=== PATIENT | male | born 1950 | race Caucasian/White ===

== ENCOUNTER 2017-07-22 05:46 | Day surgery (SDC) | payer MEDICARE, OTHER ==
[2017-07-21 13:45] LABS: HEMATOCRIT 43.7 % (42.0-54.0); HEMOGLOBIN 14.3 g/dL (13.5-17.5); MCH 31.3 pg (26.0-34.0); MCHC 32.7 g/dL (31.0-37.0); MCV 95.6 fL (80.0-100.0); MEAN PLATELET VOLUME 10.5 fL (7.4-10.4); RBC 4.57 10x6/uL (4.20-6.10); RDW 12.7 % (11.5-14.5); WBC 6.3 10x3/uL (4.8-10.8)
[2017-07-21 14:01] LABS: ANION GAP 10.9 mmol/L (8-16); CALCIUM 9.4 mg/dL (8.5-10.1); CARBON DIOXIDE 31.8 mmol/L (21.0-32.0); CREATININE - SERUM 1.2 mg/dL (0.6-1.3); POTASSIUM - SERUM 4.7 mmol/L (3.5-5.1)
[~2017-07-22 05:46] MED LIST: ANUSOL-HC25 MG RC; ARMOUR THYROID30 MG; ASPIRIN325 MG PO; ATIVAN0.5 MG; ATIVAN0.5 MG PO; BACTRIM 400-801 TAB PO; BACTRIM DS TABL1 TAB PO; BAYER ASPIRIN325 MG PO; BENADRYL25 MG PO; CIALIS5 MG PO; CINNAMON500 MG; CINNAMON500 MG PO; CLARINEX-D 21 BOTTLE; CO Q-10200 MG PO; CO Q-1030 MG; CRANBERRY; DHEA25 M1; ESTER-C 500 MG1 TAB PO; FETZIMA40 MG PO; FLAXSEED OIL1000 MG; FLAXSEED OIL1000 MG PO; FOLIC ACID; GARLIC1 CAP; GLUCOPHAGE1000 MG PO; GLUCOPHAGE500 MG PO; HUMULIN R100 U/ML SQ; HYDROCODONE-APA1 TAB PO; K-DUR20 MEQ PO; KLOR-CON M2020 MEQ PO; LACTINEX C1 TAB.CHEW PO; LASIX20 MG PO; LASIX80 MG PO; LOPRESSOR25 MG PO; LOVAZA1 G; LUNESTA3 MG PO; MELATONIN 3 MG1 TAB; MELATONIN 3 MG1 TAB PO; MUCINEX600 MG PO; NUCALA INJ; OMEGA-3100 MG PO; PROSTATE SUPPORT OR; QVAR8.7 G1 INH; RESTORIL7.5 MG PO; ROXICODONE5 MG PO; SINGULAIR10 MG PO; STERAPRED DS 1010 MG PO; STOOL SOFTENER240 MG; STOOL SOFTENER240 MG PO; SYMBICORT 16010.2 GM; SYMBICORT 16010.2 GM INH; SYMBICORT 80-10.2 GM INH; TESTOSTERON200 MG/ML IM; TYLENOL 325 MG325 MG PO; VANCOMYCIN1 GM/2501 IV; VENTOLIN HFA18 GM INH; VIT B; VITAMIN C250 MG; VITAMIN D2000 UNIT; VITAMIN D2000 UNIT PO; ZOCOR20 MG PO; ZYLOPRIM100 MG PO; [UNRECOGNIZED DRUG - OTHER] OR
[2017-07-22 14:22] VITALS: BP 134/79; BMI 37.8
--- NOTE | 2017-07-22 17:11 | NUR ---
0179- REPORT RECEIVED FROM MARLA Perea RN. PT RESTING IN BED WITH HOB ELEVATED. AT BEDSIDE. WILL MONITOR.
--- NOTE | 2017-07-22 17:13 | NUR ---
PT UP TO BR TO VOID X1 ASSIST. SMALL LIQUID BM, WELL. WILL CONTINUE TO MONITOR. VSS.
--- NOTE | 2017-07-22 17:55 | NUR ---
1745- IV DISCHARGED, PT TOLERATED. CATHETER INTACT. 1750- DISCHARGE INSTRUCTIONS COMPLETED. PAPERWORK SIGNED, PT VERBALIZES UNDERSTANDING. 175- PT DISCHARGED VIA WHEELCHAIR WITH .
--- NOTE | 2017-07-23 10:09 | OP ---
PATIENT NAME: EVAN WILLS MEDICAL RECORD: [id number] :50 LOCATION:[facility] ADMISSION DATE: SURGEON: ZANE BOWLES MD DATE OF OPERATION: 07/22/2017 SURGEON: Zane Bowles MD ANESTHESIA: General anesthesia by Dr. Yin. PREOPERATIVE DIAGNOSIS: Elevated PSA, 3.9. PROCEDURE: Transrectal ultrasound and prostate biopsy. FINDINGS: A 46 gram prostate, no hypoechoic areas. SPECIMENS: Prostate biopsy cores. ESTIMATED BLOOD LOSS: Minimal. CLINICAL HISTORY: This is a 66-year-old male, who was referred by Dr. Jacob Ochoa for an elevated PSA. His previous PSA levels had been in the 1.5 range and all of a sudden it has increased to 3.9. His family history is positive for colon cancer in his father with liver metastasis. His mother had an UT. There is no family history of prostate cancer, but this is his primary concern. He also has some obstructive voiding symptoms. On rectal examination, no nodules were palpated. He did have prophylactic antibiotics at home of Bactrim. He did have an enema last night to empty the rectum. HE IS ALLERGIC TO CIPRO, CRESTOR, AND ADHESIVE BANDAGES. He was given Ancef 1 gram IV fashion photographer to the OR today. DESCRIPTION OF PROCEDURE: The patient was given induction of general anesthesia. He was then placed into dorsal lithotomy position and prepped and draped. The transrectal ultrasound probe was placed into the rectum and we obtained measurements of the prostate size. These worked up to 46 grams. Sextant biopsies were obtained with at least 2 good cores from the apex, mid and base levels on both sides. These cores were sent separately to pathology in formalin. There were a total of 6 containers left and right apex, mid, and base. At the end of procedure, the ultrasound probe was removed and the patient was awakened and brought to the recovery room. I will see him in followup in 1 week's time review the pathology results with him. TRANSINT:[id number] Voice Confirmation ID: [id number] DOCUMENT ID: [id number] ZANE BOWLES MD at 1009 CC: [id number] DICTATION DATE: 07/22/17 161 LINE CAMERA OPERATOR: 07/22/172036 [facility] 07/22/17 [facility] [address] [place] [address]
== END 2017-07-22 17:55 | disposition home or self-care (01) ==
LOC: D.OPS 05:46 → D.PAN 13:30 → D.OPS 17:55
PROVIDERS: Anesthesiology
DX: R97.20 Elevated prostate specific antigen [PSA] (principal); J45.909 Unspecified asthma, uncomplicated; I25.10 Atherosclerotic heart disease of native coronary artery without angina pectoris; G47.30 Sleep apnea, unspecified; Z95.1 Presence of aortocoronary bypass graft; Z95.5 Presence of coronary angioplasty implant and graft; E11.9 Type 2 diabetes mellitus without complications; Z01.812 Encounter for preprocedural laboratory examination

== ENCOUNTER → 2018-01-03 17:30 | Outpatient (CLI) | payer MEDICARE, OTHER ==
[~2018-01-03 17:30] MED LIST changes: +FLOMAX0.4 MG PO; +FLUTICASONE PRO16 GM NASAL; +LEVOXYL50 MCG PO; +PROSCAR5 MG; +ZOLOFT50 MG PO
== END | disposition home or self-care (01) ==
LOC: D.LABREF 17:30
DX: N39.0 Urinary tract infection, site not specified (principal)

== ENCOUNTER 2018-02-21 07:25 | Day surgery (SDC) | payer MEDICARE, OTHER ==
[~2018-02-21] VITALS: Ht 190.5 cm; Wt 84.1 kg
--- NOTE | ~2018-02-21 | OP ---
PATIENT NAME: EVAN WILLS MEDICAL RECORD: [id number] :50 LOCATION:D[facility] ADMISSION DATE: SURGEON: JORGE LARA DO DATE OF OPERATION: 02/21/2018 PROCEDURE: Colonoscopy with polypectomy. INDICATIONS FOR PROCEDURE: History of colon polyps, family history of colon cancer in father, change in bowel habits. The patient's last colonoscopy was performed on 11/28/2015. SCOPE: Olympus video pediatric colonoscope. MEDICATIONS: Propofol 800 mg IV per anesthesia. WITHDRAWAL TIME: 29 minutes. ESTIMATED BLOOD LOSS: Minimal. COMPLICATIONS: None. FINDINGS: Informed consent was given. The patient was made comfortable with the above medication. After reaching an adequate level of sedation by slow IV push, the patient was placed on his left side. A digital rectal examination was performed and was normal. The endoscope was then advanced under direct visualization through the rectum to the cecum, confirmed by the presence of the appendiceal orifice and ileocecal valve. The endoscope was slowly withdrawn. Mucosa was carefully examined. Prep quality was fair. There were 5 polyps removed on today's examination. They were all benign appearing and sessile and ranged in size from 2-5 mm in diameter. They were removed using hot forceps in 1 piece and completely retrieved. Two of these polyps were located in the cecum and 3 were located in the ascending colon. All were removed in 1 piece and completely retrieved. There was evidence of mild diverticulosis involving the transverse colon, descending colon, and sigmoid colon. Retroflexion was performed in the rectum with visualization of grade I internal hemorrhoids without bleeding. Random cold forceps biopsies and stool collection was also performed for further studies regarding change in bowel habits. The endoscope was withdrawn from the patient. The patient tolerated the procedure well and there were no complications. IMPRESSION: 1. Five polyps as described above removed using hot forceps. 2. Mild diverticulosis of the left side of the colon. 3. Grade I internal hemorrhoids without bleeding. PLAN AND RECOMMENDATIONS: 1. Discharge home when recovery parameters are met. 2. Follow up biopsy specimen results. 3. High fiber diet. 4. Continue current medications. 5. Recall colonoscopy in 2-3 years for continued surveillance of strong personal history of polyps and family history of colon cancer. TRANSINT:[id number] Voice Confirmation ID: [id number] DOCUMENT ID: [id number] OPERATIVE REPORT [id number] WILLS,EVAN JORGE OSORIO DO at 1558 CC: [id number] DICTATION DATE: 02/21/18 1006 [place]: 02/21/18 1109 [facility] 02/21/18 [id number] [place] [address]
[~2018-02-21 07:25] MED LIST changes: -FLOMAX0.4 MG PO; -FLUTICASONE PRO16 GM NASAL; -LEVOXYL50 MCG PO; -PROSCAR5 MG; -ZOLOFT50 MG PO
[2018-02-21] MEDS ORDERED: PROSCAR5 MG (07:53)
[2018-02-21] MEDS ORDERED: FLOMAX0.4 MG PO (07:53)
[2018-02-21] MEDS ORDERED: LEVOXYL50 MCG PO (07:54)
[2018-02-21] MEDS ORDERED: SYMBICORT 80-10.2 GM INH (07:54)
[2018-02-21] MEDS ORDERED: SINGULAIR10 MG PO (07:54)
[2018-02-21] MEDS ORDERED: FLUTICASONE PRO16 GM NASAL (07:55)
[2018-02-21] MEDS ORDERED: ZOLOFT50 MG PO (07:55)
[2018-02-21 08:04] VITALS: BP 137/72; Ht 190.5 cm; Wt 84.1 kg
[2018-02-21 08:08] LABS: BASOPHILS 0.2 % (0-2); EOSINOPHILS 0.7 % (0-7); HEMATOCRIT 41.5 % (42.0-54.0); HEMOGLOBIN 13.5 g/dL (13.5-17.5); IMMATURE GRANULOCYTES 0.3 % (0-5); LYMPHOCYTES 32.2 % (15-50); MCH 31.2 pg (26.0-34.0); MCHC 32.5 g/dL (31.0-37.0); MCV 95.8 fL (80.0-100.0); MONOCYTES 10.6 % (2-11); PLATELET COUNT 155 10x3/uL (130-400); RBC 4.33 10x6/uL (4.20-6.10); RDW 13.2 % (11.5-14.5); WBC 6.1 10x3/uL (4.8-10.8)
[2018-02-21 08:29] LABS: CALC OSMOLALITY 281 mosm/kg (275-300); CALCIUM 8.7 mg/dL (8.5-10.1); CARBON DIOXIDE 27.5 mmol/L (21.0-32.0); CHLORIDE - SERUM 106 mmol/L (98-107); CREATININE - SERUM 0.9 mg/dL (0.6-1.3); GLUCOSE 104 mg/dL (74-106); POTASSIUM - SERUM 4.1 mmol/L (3.5-5.1); SODIUM 142 mmol/L (136-145); UREA NITROGEN 11 mg/dL (7-18); eGFR NON AFRICAN AMERICAN 89 mL/min (90-120)
== END 2018-02-21 11:16 | disposition home or self-care (01) ==
LOC: D.OPS 07:25
PROVIDERS: Anesthesiology
DX: D12.2 Benign neoplasm of ascending colon (principal); D12.0 Benign neoplasm of cecum; K63.5 Polyp of colon; K57.30 Diverticulosis of large intestine without perforation or abscess without bleeding; K64.0 First degree hemorrhoids; Z86.010 Personal history of colon polyps; Z80.0 Family history of malignant neoplasm of digestive organs

== ENCOUNTER 2018-08-02 08:55 | Day surgery (SDC) | payer MEDICARE, OTHER ==
[~2018-08-02] VITALS: Ht 190.5 cm; Wt 136.1 kg
--- NOTE | ~2018-08-02 | OP ---
PATIENT NAME: EVAN WILLS MEDICAL RECORD: [id number] :50 LOCATION:[facility] ADMISSION DATE: SURGEON: CARLOS BOWLES MD DATE OF OPERATION: 08/02/2018 SURGEON: Carlos Bowles MD ANESTHESIA: General anesthesia by Ilene Davis CRNA DIAGNOSES: Bladder tumor and obstructive BPH. PROCEDURES: Cystoscopy, right retrograde pyelogram, right ureteral stent insertion of 6-Mexican x 26 cm without string attached, transurethral resection of bladder tumor of less than 5 cm with greater than 2 cm in extent, and UroLift with 4 devices used. FINDINGS: Bilateral lateral lobe hyperplasia of the prostate. Papillary right posterior wall bladder tumor very close to the right ureteral orifice. Tumors are about 5 cm or less in extent but greater than 2 cm in extent. SPECIMENS: Bladder tumors. BLOOD LOSS: None. CLINICAL HISTORY: This is a 67-year-old male who has obstructive BPH symptoms. Last year, he had transrectal ultrasound and prostate biopsy which showed that his prostate was 46 grams in size. His pathology was benign. He has been on finasteride and tamsulosin for over 6 months and he still has quite significant voiding symptoms. This includes urgency and nocturia times 1. He has to carry a urinal in the car because he has to void very frequently and urgently. He does not want to carry on with the medications and he wishes to have the UroLift procedure done. HE IS ALLERGIC TO ADHESIVE, CIPRO, AND CRESTOR. He was given Ancef 2 grams IV on-call to the OR. DESCRIPTION OF PROCEDURE: Initially, the patient was given TIVA and he was placed in dorsal lithotomy position and prepped and draped. We used a 20-Mexican cystoscope with 30-degree lens for visualization. Penile urethra showed no tumors or obstruction. Prostatic urethra showed bilateral lateral lobe hyperplasia with obstruction. There was no significant median lobe. On entering into the bladder, the left ureteral orifice was normal. The bladder was mildly trabeculated. Around the right ureteral orifice, we saw extensive papillary bladder tumors. Because of this, we had to obtain a retrograde pyelogram to check the upper tracts and also I wanted to insert a right ureteral stent to protect the ureteral orifice. Radiology was called. We used an open-ended 5-Mexican ureteral catheter and diluted contrast was injected into the right ureteral orifice for retrograde pyelogram. No hydronephrosis or filling defects were seen. No upper tract filling defects were seen. Through the lumen of the ureteral catheter, a Sensor wire was placed up to the renal pelvis. Once the wire was in correct position, the ureteral catheter was entirely removed, leaving the wire in place. Over the wire, we inserted a 6-Mexican x 26-cm right ureteral stent with the string on the distal end removed. Once the stent was in correct position, the wire was entirely removed. The distal end of the stent was pushed into the bladder using a pusher. Fluoroscopy revealed that the proximal and distal ends of the stent were in the correct position. I then used the monopolar resection loop and resected all of the papillary bladder tumor, OPERATIVE REPORT [id number] EVAN WILLS but working around the stent. No bladder perforation occurred. The ureteral orifice itself was left intact, but the transmural ureter has been resected above. It was not perforated, but the tissue overlying it has been resected. All the resection specimens were collected and sent to pathology for diagnosis. We then turned our attention back to the UroLift procedure. The resectoscope was removed. We went back to the UroLift scope. Going into the bladder neck, we then moved distally by about 2 cm. An implant was placed through the left lateral lobe for the bladder neck unit. One was placed on the right lateral lobe in the corresponding location. We then moved just proximal to the verumontanum and another 2 were placed here just proximal to the verumontanum. This was placed one on each side. This gave a total of 4 implants placed. We then had a nice wide open prostatic urinary channel. Once this was done, the scope was removed entirely. A 20-Mexican 3-way Woodard catheter was then inserted into the bladder. The balloon was inflated with 30 cc of sterile water. The inflow port was capped. The catheter was put to bag drainage. The patient will go home with a Woodard catheter to bag drainage. I will see him in follow up in one week's time to remove the Woodard catheter. We will also make arrangements for removal of the right ureteral stent at that time. The patient's preoperative IPSS score was 31 and his quality of life score was 5. TRANSINT:[id number] Voice Confirmation ID: [id number] DOCUMENT ID: [id number] CARLOS BOWLES MD at 1004 CC: [id number] DICTATION DATE: 08/02/18 1558 GRAINING MACHINE OPERATOR: 08/02/18 1846 [facility] 08/02/18 [facility] [address] [id number]
[~2018-08-02 08:55] MED LIST changes: +FLOMAX0.4 MG PO; +FLUTICASONE PRO16 GM NASAL; +LEVOXYL50 MCG PO; +PROSCAR5 MG; +ZOLOFT50 MG PO
[2018-08-02 09:33] LABS: HEMATOCRIT 40.9 % (42.0-54.0); HEMOGLOBIN 13.6 g/dL (13.5-17.5); MCH 31.6 pg (26.0-34.0); MCHC 33.3 g/dL (31.0-37.0); MCV 95.1 fL (80.0-100.0); MEAN PLATELET VOLUME 10.6 fL (7.4-10.4); RBC 4.3 10x6/uL (4.20-6.10); RDW 12.5 % (11.5-14.5); WBC 5.9 10x3/uL (4.8-10.8)
[2018-08-02 09:42] LABS: ANION GAP 10.9 mmol/L (8-16); CALCIUM 9.2 mg/dL (8.5-10.1); CARBON DIOXIDE 31.1 mmol/L (21.0-32.0); CREATININE - SERUM 1.1 mg/dL (0.6-1.3)
[2018-08-02 11:36] VITALS: BP 116/70; Ht 190.5 cm; Wt 136.1 kg
== END 2018-08-02 17:55 | disposition home or self-care (01) ==
LOC: D.OPS 08:55
PROVIDERS: Anesthesiology
DX: C67.4 Malignant neoplasm of posterior wall of bladder (principal); N40.1 Benign prostatic hyperplasia with lower urinary tract symptoms; N13.8 Other obstructive and reflux uropathy; Z01.812 Encounter for preprocedural laboratory examination
CPT/HCPCS: 52332; 52235; C9740

== ENCOUNTER 2018-08-16 07:59 | Day surgery (SDC) | payer MEDICARE, OTHER ==
[~2018-08-16] VITALS: Ht 193 cm; Wt 144.7 kg
--- NOTE | ~2018-08-16 | OP ---
PATIENT NAME: EVAN WILLS MEDICAL RECORD: [id number] :50 LOCATION:D.[facility] ADMISSION DATE: SURGEON: CARLOS BOWLES MD DATE OF OPERATION: 08/16/2018 SURGEON: Carlos Bowles MD ANESTHESIA: TIVA by Ilene Davis CRNA. DIAGNOSIS: Retained right ureteral stent. PROCEDURES: Cystoscopy and removal of right ureteral stent. BLOOD LOSS: None. CLINICAL HISTORY: This is a 67-year-old male, who had obstructive BPH. He came a couple of weeks ago to have a UroLift procedure performed. When we performed cystoscopy for the procedure, we identified an extensive bladder cancer around the right ureteral orifice. He had placement of a right ureteral stent and the bladder cancer was resected. He then had the UroLift procedure done. Now, he is voiding very well with the UroLift. He comes to have his right ureteral stent removed. He is not allergic to Ancef, and he was given Ancef motion study analyst to the OR. DESCRIPTION OF PROCEDURE: The patient was given IV sedation. He was placed in dorsal lithotomy position. A 21-Macedonian cystoscope with 30-degree lens was used for visualization. We identified the stent. The grasping forceps were placed around the stent and the stent was entirely removed. I will see him in followup as previously arranged to check on his voiding function. He will need surveillance cystoscopy in 3 months' time. TRANSINT:[id number] Voice Confirmation ID: [id number] DOCUMENT ID: [id number] ACRLOS BOWLES MD at 1346 CC: [id number] DICTATION DATE: 08/16/18 1106 SIEVE GRADER TENDER: 08/16/18 1130 [facility] 08/16/18 [facility] [address] [place] [address]
[2018-08-16 08:14] LABS: HEMATOCRIT 43.1 % (42.0-54.0); HEMOGLOBIN 14.4 g/dL (13.5-17.5); MCH 31.8 pg (26.0-34.0); MCHC 33.4 g/dL (31.0-37.0); MCV 95.1 fL (80.0-100.0); MEAN PLATELET VOLUME 10.7 fL (7.4-10.4); RBC 4.53 10x6/uL (4.20-6.10); RDW 12.6 % (11.5-14.5); WBC 6.1 10x3/uL (4.8-10.8)
[2018-08-16 08:26] LABS: ANION GAP 11.2 mmol/L (8-16); CALCIUM 9.3 mg/dL (8.5-10.1); CARBON DIOXIDE 30.4 mmol/L (21.0-32.0); CREATININE - SERUM 1.1 mg/dL (0.6-1.3); POTASSIUM - SERUM 4.6 mmol/L (3.5-5.1)
[2018-08-16 09:20] VITALS: BP 137/84; Ht 193 cm; Wt 144.7 kg
== END 2018-08-16 12:30 | disposition home or self-care (01) ==
LOC: D.OPS 07:59 → D.PAN 12:05 → D.OPS 12:30 → D.PAN 13:00
PROVIDERS: Anesthesiology
DX: N28.89 Other specified disorders of kidney and ureter (principal); N40.1 Benign prostatic hyperplasia with lower urinary tract symptoms; N13.8 Other obstructive and reflux uropathy; Z46.6 Encounter for fitting and adjustment of urinary device; Z01.812 Encounter for preprocedural laboratory examination

== ENCOUNTER → 2018-08-18 15:24 | Outpatient (CLI) | payer MEDICARE, OTHER ==
[2018-08-16 09:20] VITALS: BMI 38.9
== END | disposition home or self-care (01) ==
LOC: D.CT 15:24
DX: R31.0 Gross hematuria (principal)

== ENCOUNTER → 2018-10-24 11:44 | Outpatient (CLI) | payer MEDICARE, OTHER ==
[2018-08-16 09:20] VITALS: BMI 38.9
== END | disposition home or self-care (01) ==
LOC: D.RAD 11:44
DX: R05 Cough (principal)

== ENCOUNTER 2018-11-10 06:11 | Day surgery (SDC) | payer MEDICARE, OTHER ==
[~2018-11-10] VITALS: Ht 193 cm; Wt 140.6 kg
[~2018-11-10 06:11] MED LIST changes: +BUPROPION XL150 MG PO
[2018-11-10 06:37] LABS: BASOPHILS 0.3 % (0-2); EOSINOPHILS 0.6 % (0-7); HEMATOCRIT 45.6 % (42.0-54.0); HEMOGLOBIN 14.9 g/dL (13.5-17.5); IMMATURE GRANULOCYTES 0.2 % (0-5); LYMPHOCYTES 27.4 % (15-50); MCH 31.6 pg (26.0-34.0); MCHC 32.7 g/dL (31.0-37.0); MCV 96.8 fL (80.0-100.0); MEAN PLATELET VOLUME 10.4 fL (7.4-10.4); MONOCYTES 12.1 % (2-11); NEUTROPHILS 59.4 % (40-80); PLATELET COUNT 172 10x3/uL (130-400); RBC 4.71 10x6/uL (4.20-6.10); RDW 12.9 % (11.5-14.5); WBC 6.3 10x3/uL (4.8-10.8)
[2018-11-10 06:55] LABS: APTT 35.4 SECONDS (22.8-39.4); INR 1.05 (0.85-1.17); PROTIME 13.2 SECONDS (11.6-15.0)
[2018-11-10 07:07] LABS: ANION GAP 13.5 mmol/L (8-16); CALCIUM 8.8 mg/dL (8.5-10.1); CARBON DIOXIDE 28.5 mmol/L (21.0-32.0); CREATININE - SERUM 1.1 mg/dL (0.6-1.3)
[2018-11-10] MEDS ORDERED: LASIX20 MG PO (08:01)
[2018-11-10] MEDS ORDERED: ALBUTEROL SULF8.5 GM (08:04)
[2018-11-10] MEDS ORDERED: NUCALA (08:06)
[2018-11-10 08:08] VITALS: BP 126/78; Ht 193 cm; Wt 140.6 kg
--- NOTE | 2018-11-10 09:30 | NUR ---
REC'D FROM SURGERY. FAMILY AT BEDSIDE. RELATES NEEDS TO GO TO THE BATHROOM. AMBULATED TO BATHROOM HOWEVER WAS NOT ABLE TO VOID. ORANGE JUICE BROUGHT TO PT.
--- NOTE | 2018-11-10 09:40 | NUR ---
PETER MUNROE BROUGHT TO PT. FAMILY AT BEDSIDE.
--- NOTE | 2018-11-10 09:56 | OP ---
PATIENT NAME: EVAN WILLS MEDICAL RECORD: [id number] :50 LOCATION:D.[facility] ADMISSION DATE: SURGEON: CARLOS BOWLES MD DATE OF OPERATION: 11/10/2018 SURGEON: Carlos Bowles MD ANESTHESIA: TIVA by Eduardo Edwards CRNA. DIAGNOSIS: History of bladder cancer. PROCEDURE: Cystoscopy. FINDINGS: Open prostatic urethra post UroLift. Trabeculated bladder with no tumors seen. BLOOD LOSS: None. CLINICAL HISTORY: This is a 68-year-old male, who had an obstructive BPH. He had the UroLift procedure done in late July of 2018. At that time, we found papillary bladder tumors around the right ureteral orifice. These were resected and the UroLift procedure was done. He comes today for a surveillance cystoscopy. HE IS ALLERGIC TO CIPRO, CRESTOR, AND ADHESIVE TAPE. He was given Ancef IV foot and ankle surgeon to the OR. DESCRIPTION OF PROCEDURE: The patient was given IV sedation. He was then placed in the dorsal lithotomy position. We performed cystoscopy using a 17-Greenlandic cystoscope. Penile urethra was normal with no tumors or strictures. Prostatic urethra shows nice opening from the UroLift. No tumors were seen. Going into the bladder, single ureteral orifices are seen bilaterally. The site of the previous bladder tumor is evidenced by a scar, but no recurrent bladder tumors are seen anywhere. The bladder was then emptied through the cystoscope sheath and the scope was removed. We will repeat the bladder tumor surveillance in 3 months' time. TRANSINT:[id number] Voice Confirmation ID: [id number] DOCUMENT ID: [id number] CARLOS BOWLES MD at 0956 CC: [id number] DICTATION DATE: 11/10/18 0927 ASIC VERIFICATION ENGINEER: 11/10/18 0949 REG [facility] [address] [place] [address]
--- NOTE | 2018-11-10 10:00 | NUR ---
TOLERATED FL TRAY. UP TO BATHROOM AND VOIDED WITHOUT DIFFICULTY. IV DC'D WITH CATHETER INTACT. WRITTEN AND VERBAL DC INST. GIVEN TO PT. VERBALIZED UNDERSTANDING.
--- NOTE | 2018-11-10 10:05 | NUR ---
DC'D HOME WITH FAMILY VIA PRIVATE VEHICLE. TAKEN TO VEHICLE VIA WC. STABLE AT TIME OF DC.
== END 2018-11-10 10:05 | disposition home or self-care (01) ==
LOC: D.OPS 06:11 → D.PAN 07:30 → D.OPS 08:10 → D.PAN 08:30 → D.OPS 10:05
PROVIDERS: Anesthesiology
DX: N32.89 Other specified disorders of bladder (principal); Z85.51 Personal history of malignant neoplasm of bladder; N40.1 Benign prostatic hyperplasia with lower urinary tract symptoms; N13.8 Other obstructive and reflux uropathy; Z88.1 Allergy status to other antibiotic agents; Z88.8 Allergy status to other drugs, medicaments and biological substances; Z01.812 Encounter for preprocedural laboratory examination

== ENCOUNTER 2019-02-02 07:03 | Day surgery (SDC) | payer MEDICARE, OTHER ==
[~2019-02-02] VITALS: Ht 193 cm; Wt 141.1 kg
[~2019-02-02 07:03] MED LIST changes: +ALBUTEROL SULF8.5 GM; +NUCALA; +PRAVACHOL20 MG PO
[2019-02-02 07:24] LABS: HEMOGLOBIN 14.9 g/dL (13.5-17.5); MCH 31.3 pg (26.0-34.0); MCHC 33.9 g/dL (31.0-37.0); MCV 92.4 fL (80.0-100.0); MEAN PLATELET VOLUME 10.6 fL (7.4-10.4); RBC 4.76 10x6/uL (4.20-6.10); WBC 5.5 10x3/uL (4.8-10.8)
[2019-02-02 07:33] LABS: CALC OSMOLALITY 279 mosm/kg (275-300); CARBON DIOXIDE 28.1 mmol/L (21.0-32.0); CHLORIDE - SERUM 104 mmol/L (98-107); GLUCOSE 154 mg/dL (74-106); POTASSIUM - SERUM 4.1 mmol/L (3.5-5.1); SODIUM 138 mmol/L (136-145); UREA NITROGEN 15 mg/dL (7-18); eGFR NON AFRICAN AMERICAN 79 mL/min (90-120)
[2019-02-02 08:23] VITALS: BP 142/89; Ht 193 cm; Wt 141.1 kg
--- NOTE | 2019-02-02 10:34 | NUR ---
REC'D FROM SURGERY. FAMILY AT BEDSIDE. FL TRAY BROUGHT TO PATIENT.
--- NOTE | 2019-02-02 11:05 | NUR ---
TOLERATED FL TRAY. NO VOID AT THIS TIME.
--- NOTE | 2019-02-02 11:40 | NUR ---
AMBULATED TO BATHROOM AND VOIDED WITHOUT DIFFICULTY. IV DC'D WITH CATHETER INTACT. WRITTEN AND VERBAL DC INST. GIVEN TO PATIENT. VERBALIZED UNDERSTANDING.
--- NOTE | 2019-02-02 11:45 | NUR ---
DC'D HOME WITH FAMILY VIA PRIVATE VEHICLE. TAKEN TO VEHICLE VIA WC. STABLE AT TIME OF DC.
--- NOTE | 2019-02-08 08:01 | OP ---
PATIENT NAME: EVAN WILLS MEDICAL RECORD: [id number] :50 LOCATION:D.[facility] ADMISSION DATE: SURGEON: ZANE BOWLES MD DATE OF OPERATION: 02/02/2019 SURGEON: Zane Bowles MD ANESTHESIA: TIVA by Ming San CRNA DIAGNOSES: 1. History of bladder cancer diagnosed. 2. Obstructive benign prostatic hypertrophy with recent urinary tract infection. 3. Transrectal ultrasound, 46 grams. IPSS equals 19 and quality of life score is 4. PROCEDURE: UroLift times 4 implants, 3 on the left side and 1 on the right mid prostate. FINDINGS: On cystoscopy, persistent prostatic obstruction by the lateral lobes, especially in the mid urethra. No bladder tumors were seen. ESTIMATED BLOOD LOSS: None. CLINICAL HISTORY: This is a 68-year-old male who had UroLift times 4 in 08/02/2018. During that surgery a large papillary bladder tumor was seen in the right posterior wall of the bladder. 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 He had surveillance cystoscopy in November of 2018 and I did not see any tumor recurrences. In the meantime, he had an elevated PSA of 3.9. In 2016, I performed a prostate biopsy at that time. The prostate size was 46 grams and the pathology was benign with chronic inflammation. His latest PSA hannah to 9.1 because he had a urinary tract infection, which was treated with antibiotics. After the UroLift had been done, his scores had greatly improved in terms of the IPSS and quality of life score as now, these scores have gotten worse. His IPPS score has gone to 19, but it had been 16 previously. His quality of life score is 4 and previously it was 1. He is again complaining of urgency and a slow urinary flow. Since I have to perform surveillance bladder cystoscopy anyway, I decided to tackle his bladder outlet obstruction. If he has a urethral stricture, we will incise it. If he has a residual obstruction of the prostate, we will add more UroLift units to completely eliminate the prostatic obstruction. HE IS ALLERGIC TO CIPRO, CRESTOR, AND ADHESIVE TAPE. He was given Ancef space systems operations manager to the OR. DESCRIPTION OF PROCEDURE: The patient was given IV sedation. He was placed in dorsal lithotomy position and prepped and draped. We used a 17-Turkmen cystoscope initially. Going in, there were no urethral strictures in the penis at all. The prostate shows some signs of the UroLift from his previous operation in July. However, there are areas of obstruction, especially in the mid urethra. There is also some obstruction in the apex of the prostate. Going into the bladder, the bladder was trabeculated with cellules and diverticula. Single ureteral orifices are seen on each side. The area of scar from previous bladder tumor resection was noted. No bladder tumor recurrences were seen. At this point, I decided to add more UroLift units. The first 2 units were placed, one on each side at the mid prostatic urethra at the anterior OPERATIVE REPORT [id number] EVAN WILLS [facility]. These were placed and then going back with the visual obturator, there was still residual obstruction near the bladder neck and at the apex near the verumontanum. On the left bladder neck level, I added yet another unit at an even more anterior plane than the one that was already existed there. This fully opened up the bladder neck. Finally, at the level of the verumontanum, on the left apex, I added another UroLift implant little even more anterior than the one that was already there to remove some of the anterior overhanging tissue. Now, he has a wide open prostatic urethra, which was visible from the verumontanum all the way into the bladder neck. The bladder was partly emptied. The scope was then removed. The fluid in the bladder will help us to determine if he is able to void today or not. TRANSINT:[id number] Voice Confirmation ID: [id number] DOCUMENT ID: [id number] ZANE BOWLES MD at 0801 CC: [id number] DICTATION DATE: 02/02/19 1041 DRAFTER GEOPHYSICAL: 02/02/[address] [facility] 02/02/19 [facility] [address] [id number]
== END 2019-02-02 11:45 | disposition home or self-care (01) ==
LOC: D.OPS 07:03 → D.PAN 10:00 → D.OPS 10:00
PROVIDERS: Anesthesiology; ATTEND Urology
DX: N40.1 Benign prostatic hyperplasia with lower urinary tract symptoms (principal); N13.8 Other obstructive and reflux uropathy; Z85.51 Personal history of malignant neoplasm of bladder; Z01.812 Encounter for preprocedural laboratory examination

== ENCOUNTER 2019-05-18 07:06 | Day surgery (SDC) | payer MEDICARE, OTHER ==
[~2019-05-18] VITALS: Ht 193 cm; Wt 131.5 kg
[2019-05-18 07:27] LABS: BASOPHILS 0.7 % (0-2); EOSINOPHILS 2.1 % (0-7); HEMATOCRIT 38.9 % (42.0-54.0); IMMATURE GRANULOCYTES 0.4 % (0-5); LYMPHOCYTES 36.4 % (15-50); MCHC 33.4 g/dL (31.0-37.0); MCV 92.8 fL (80.0-100.0); MEAN PLATELET VOLUME 10.3 fL (7.4-10.4); MONOCYTES 14.1 % (2-11); NEUTROPHILS 46.3 % (40-80); RBC 4.19 10x6/uL (4.20-6.10); RDW 13.1 % (11.5-14.5); WBC 5.7 10x3/uL (4.8-10.8)
[2019-05-18 07:31] LABS: PLATELET COUNT 169 10x3/uL (130-400)
[2019-05-18 07:43] LABS: PROTIME 12.7 SECONDS (11.6-15.0)
[2019-05-18 07:44] LABS: APTT 35.5 SECONDS (22.8-39.4)
[2019-05-18 08:33] VITALS: BP 132/73; Ht 193 cm; Wt 131.5 kg
--- NOTE | 2019-05-18 11:36 | NUR ---
1116-REC'D FROM SURGERY, DROWSY EASILY AROUSED,VSS. DENIES PAIN. AT BEDSIDE, CL IN EASY REACH.
--- NOTE | 2019-05-18 11:39 | NUR ---
1135-FULL LIQUID TRAY TO ROOM.VSS. DENIES COMPLAINTS
--- NOTE | 2019-05-18 12:02 | OP ---
PATIENT NAME: EVAN WILLS MEDICAL RECORD: [id number] :50 LOCATION:D.OPS ADMISSION DATE: SURGEON: CARLOS BOWLES MD DATE OF OPERATION: 05/18/2019 SURGEON: Carlos Bowles MD ANESTHESIA: TIVA by Rajendra Villanueva CRNA DIAGNOSIS: History of bladder cancer. PROCEDURE: Cystoscopy. FINDINGS: Open anterior prostatic urethral channel from UroLift. Trabeculated bladder with cellules and diverticula. No bladder tumors were seen. BLOOD LOSS: None. CLINICAL HISTORY: This is a 68-year-old male, who recently had a total of 8 UroLift implants placed. He has a history of bladder cancer. He comes today to have surveillance cystoscopy done. HE IS ALLERGIC TO CIPRO, CRESTOR AND MOST STATINS. He was given Ancef 2 grams IV subscription crew leader to the OR. DESCRIPTION OF PROCEDURE: The patient was given IV sedation. He was then placed into lithotomy position and prepped and draped. A 17-Bulgarian cystoscope with 30-degree lens was used for visualization. Findings are as outlined above. The bladder was then emptied through the cystoscope sheath and the scope was removed. I will see him in followup in 6 months' time to arrange a repeat surveillance cystoscopy. TRANSINT:[id number] Voice Confirmation ID: [id number] DOCUMENT ID: [id number] CARLOS BOWLES MD at 1202 CC: [id number] DICTATION DATE: 05/18/19 1111 GROUNDHAND: 05/18/19 1137 REG [facility] [address] [place] [address]
--- NOTE | 2019-05-18 13:13 | NUR ---
1220- DISCHARGE CRITERIA MET. ABLE TO AMBULATE AND URINATE WITHOUT COMPLICATIONS. REMOVED IV FROM RIGHT ARM WITH CATH INTACT DISPOSED INTO SHARPS CONTAINER,COVERED WITH BANDAID. REVIEWED DISCHARGE INSTRUCTIONS WITH PT AND SPOUSE. VERBALIZED UNDERSTANDING WITHOUT QUESTIONS OR CONCERNS. ESCORTED OUT VIA W/C BY STAFF DRIVING HOME. DISCHARGE PAPERWORK IN HAND
== END 2019-05-18 12:20 | disposition home or self-care (01) ==
LOC: D.OPS 07:06 → D.PAN 07:55 → D.OPS 09:00 → D.PAN 09:30 → D.OPS 09:30 → D.PAN 09:45 → D.OPS 09:45
PROVIDERS: Anesthesiology; ATTEND Urology
DX: Z85.51 Personal history of malignant neoplasm of bladder (principal); N32.89 Other specified disorders of bladder; Z88.1 Allergy status to other antibiotic agents; Z88.8 Allergy status to other drugs, medicaments and biological substances; Z01.812 Encounter for preprocedural laboratory examination

== ENCOUNTER → 2019-05-30 08:39 | Outpatient (CLI) | payer MEDICARE, OTHER ==
[~2019-05-30] VITALS: Ht 193 cm; Wt 130.2 kg
[2019-05-30 11:53] VITALS: Ht 193 cm; Wt 130.2 kg
== END | disposition home or self-care (01) ==
LOC: D.FANS 08:39
PROVIDERS: ATTEND Family Medicine
DX: E11.9 Type 2 diabetes mellitus without complications (principal)

== ENCOUNTER → 2021-02-12 10:09 | Outpatient (CLI) | payer MEDICARE, OTHER ==
[2020-09-23 12:22] VITALS: BMI 37.0
[~2021-02-12 10:09] MED LIST changes: +JARDIANCE25 MG PO
== END | disposition home or self-care (01) ==
LOC: D.NM 10:00
PROVIDERS: ATTEND Nurse Practitioner Family
DX: Z96.652 Presence of left artificial knee joint (principal)

== ENCOUNTER → 2021-04-03 13:27 | Outpatient (CLI) | payer MEDICARE, OTHER ==
[2020-09-23 12:22] VITALS: BMI 37.0
== END | disposition home or self-care (01) ==
LOC: D.MRI 13:27
PROVIDERS: ATTEND Nurse Practitioner Family
DX: S82.114A Nondisplaced fracture of right tibial spine, initial encounter for closed fracture (principal)